=== PATIENT | male | born 1985 | race Caucasian/White ===

== ENCOUNTER 2017-04-30 12:14 | Emergency (ER) | payer MEDICAID ==
--- NOTE | 2017-04-30 12:42 | EDM.PDOC ---
ED HPI GENERAL MEDICAL PROBLEM - General Chief Complaint: General Stated Complaint: NAIL SHOT INTO CHIN Time Seen by Provider: 04/30/17 12:33 - History of Present Illness INITIAL COMMENTS - FREE TEXT/NARRATIVE: HISTORY AND PHYSICAL: History of present illness: []Patient presents after having an accident with his nail gun the shot a 0.16 nail directly into his left jaw actually left chin protruding straight in, the male apparently was only penetrating about an inch as approximately 2 inches was external, the patient removed the nail at home and presents as such pain is minimal at current 1 out of 10 denies pain medication No fever nausea vomiting chills sweats no chest pain shortness breath headache dizziness palpitation no other injury Review of systems: As per history of present illness and below otherwise all systems reviewed and negative. Past medical history: As per history of present illness and as reviewed below otherwise noncontributory. Surgical history: As per history of present illness and as reviewed below otherwise noncontributory. Social history: No reported history of drug or alcohol abuse. Family history: As per history of present illness and as reviewed below otherwise noncontributory. Physical exam: HEENT: Atraumatic, normocephalic, pupils reactive, negative for conjunctival pallor or scleral icterus, mucous membranes moist, throat clear, neck supple, nontender, trachea midline. Lungs: Clear to auscultation, breath sounds equal bilaterally, chest nontender. Heart: S1S2, regular, negative for clicks, rubs, or JVD. Abdomen: Soft, nondistended, nontender. Negative for masses or hepatosplenomegaly. Negative for costovertebral tenderness. Pelvis: Stable nontender. Genitourinary: Deferred. Rectal: Deferred. Extremities: Atraumatic, negative for cords or calf pain. Neurovascular unremarkable. Neuro: Awake, alert, oriented. Cranial nerves II through XII unremarkable. Cerebellum unremarkable. Motor and sensory unremarkable throughout. Exam nonfocal. Skin consistent with history small hole consistent with 0.16 nail left chin no redness warmth or exudate Diagnostics: []Mandible 2 views rule out foreign body Therapeutics: []Is status is updated 1 g Rocephin Keflex 500 by mouth twice a day #20 no refill Impression: []Puncture wound Definitive disposition and diagnosis as appropriate pending reevaluation and review of above. Face Pain Score (Numeric/FACES): 4 - Related Data Allergies Allergy/AdvReac Type Severity Reaction Status Date / Time No Known Allergies Allergy Verified 04/30/17 12:27 Home Meds: Home Meds . [No Known Home Meds] 04/30/17 [History] Past Medical History HEENT History: Reports: None Cardiovascular History: Reports: None Respiratory History: Reports: None Gastrointestinal History: Reports: None Genitourinary History: Reports: None Musculoskeletal History: Reports: None Neurological History: Reports: None Psychiatric History: Reports: None Endocrine/Metabolic History: Reports: None Hematologic History: Reports: None Immunologic History: Reports: None Oncologic (Cancer) History: Reports: None Dermatologic History: Reports: None - Infectious Disease History Infectious Disease History: Reports: None - Past Surgical History Head Surgeries/Procedures: Reports: None Male Surgical History: Reports: None Neurological Surgical History: Reports: None Social & Family History - Tobacco Use Years of Tobacco use: 15 Packs/Tins Daily: 0.5 Used Tobacco, but Quit: No Second Hand Smoke Exposure: No - Caffeine Use Caffeine Use: Reports: Coffee - Recreational Drug Use Recreational Drug Use: No ED ROS GENERAL - Review of Systems Review Of Systems: ROS reveals no pertinent complaints other than HPI. ED EXAM, GENERAL - Physical Exam Exam: See Below Course - Vital Signs Last Recorded V/S: Last Vital Signs Temp 36.5 C 04/30/17 12:24 Pulse 49 L 04/30/17 12:24 Resp 16 04/30/17 12:24 BP 119/68 04/30/17 12:24 Pulse Ox 100 04/30/17 12:24 - Orders/Labs/Meds Orders: Active Orders 24 hr Category Date Time Status Vaccines to be Administered [RC] PER UNIT ROUTINE Care 04/30/17 12:44 Ordered Mandible Less 4V [CR] Stat Exams 04/30/17 12:43 Ordered Meds: Medications Discontinued Medications Generic Name Dose Route Start Last Admin Trade Name Freq PRN Reason Stop Dose Admin Diphtheria/Tetanus/Acell Pertussis 0.5 ml 04/30/17 12:43 Adacel IM 04/30/17 12:44 .ONCE ONE Ceftriaxone Sodium 1,000 mg/ 4 mls @ 4 mls/sec 04/30/17 12:44 Lidocaine HCl IM 04/30/17 12:45 ONETIME ONE Departure - Departure Time of Disposition: 12:46 Disposition: Home, Self-Care 01 Condition: Good Clinical Impression: Puncture wound - Discharge Information Referrals: PCP,None [Primary Care Provider] - Forms: ED Department Discharge Additional Instructions: Medication as prescribed Return if symptoms persist or worsen or fever nausea vomiting chills sweats redness warmth or pus drainage should this develop Follow-up with primary care in 2 weeks [facility] - [facility] [address] [place] [id number] The following information is given to patients seen in the emergency department who are being discharged to home. This information is to outline your options for follow-up care. We provide all patients seen in our emergency department with a follow-up referral. The need for follow-up, as well as the timing and circumstances, are variable depending upon the specifics of your emergency department visit. If you don't have a primary care physician on staff, we will provide you with a referral. We always advise you to contact your personal physician following an emergency department visit to inform them of the circumstance of the visit and for follow-up with them and/or the need for any referrals to a consulting specialist. The emergency department will also refer you to a specialist when appropriate. This referral assures that you have the opportunity for follow-up care with a specialist. All of these measure are taken in an effort to provide you with optimal care, which includes your follow-up. Under all circumstances we always encourage you to contact your private physician who remains a resource for coordinating your care. When calling for follow-up care, please make the office aware that this follow-up is from your recent emergency room visit. If for any reason you are refused follow-up, please contact the [facility] emergency department at and asked to speak to the emergency department charge nurse. - My Orders Last 24 Hours: My Active Orders 04/30/17 12:43 Mandible Less 4V [CR] Stat 04/30/17 12:44 Vaccines to be Administered [RC] PER UNIT ROUTINE - Assessment/Plan Last 24 Hours: My Active Orders 04/30/17 12:43 Mandible Less 4V [CR] Stat 04/30/17 12:44 Vaccines to be Administered [RC] PER UNIT ROUTINE
[2017-04-30] MEDS ORDERED: Diphtheria,Pertussis(Acell),Tetanus Vaccine 0.5 ML Syringe IM ONE (12:43)
[2017-04-30] MEDS ORDERED: cefTRIAXone 1,000 MG in Lidocaine 1% 4 ML IM ONE (12:44)
[2017-04-30 14:08] VITALS: BP 135/79
--- NOTE | 2017-05-03 13:56 | CR ---
EXAM DATE: 04/30/17 PATIENT'S AGE: 31 Patient: GENO OLIVEROS Facility: [place], [place] Site . Site : 1985 Study: XRay Facial [id number] 1:16:48 PM Ordering Physician: Stefany Painter Final Report: INDICATION: Nail to the left jaw ;status post removal. Comparison: None. Technique: Four view study facial bones. Findings: No evidence of fracture or dislocation. No bony or soft tissue abnormalities. Impression: Negative radiographic examination of the facial bones. Dictated by Casi Lui MD @ Apr 30 2017 1:17PM (Electronic Signature) Report Signed by Proxy. TIM
== END 2017-04-30 13:49 | disposition home or self-care (01) ==
LOC: MW.ED 12:14
DX: S01.83XA Puncture wound without foreign body of other part of head, initial encounter (principal); W29.4XXA Contact with nail gun, initial encounter; Z23 Encounter for immunization
CPT/HCPCS: 70100; 90471; 90715; 99283; J0696